=== PATIENT | female | born 1990 | race Caucasian/White ===

== ENCOUNTER 2021-07-17 08:05 | Emergency (ER) | payer OTHER ==
[~2021-07-17] VITALS: Ht 165.1 cm; Wt 82.6 kg
[2021-07-17 08:48] LABS: BASOPHIL 0.3 % (0-2); EOSINOPHIL 0.9 % (0-5); HCT 43.1 % (37.0-47.0); HGB 14.5 g/dl (12.5-16.0); LYMPHOCYTE 21.2 % (15-48); MCH 30.3 pg (25.0-31.0); MCHC 33.6 g/dL (32.0-36.0); MCV 90.2 fL (78.0-100.0); MONOCYTE 6.8 % (0-12); NEUTROPHIL 70.5 % (41-80); NRBC 0; PLT 299 K/uL (150-400); RBC 4.78 M/uL (4.20-5.40); WBC 13.5 K/uL (4.0-10.5)
[2021-07-17 08:48] LABS: BILIRUBIN NEGATIVE (NEGATIVE); BLOOD NEGATIVE Ery/uL (NEGATIVE); CLARITY CLEAR (CLEAR); COLOR YELLOW (YELLOW); GLUCOSE (U) NORMAL (NORMAL); LEUKOCYTES NEGATIVE Leu/uL (NEGATIVE); NITRITE NEGATIVE (NEGATIVE); PROTEIN NEGATIVE (NEGATIVE); SPECIFIC GRAVITY 1.025 (1.001-1.030); UROBILINOGEN 0.2 mg/dL (0.2-1.0)
[2021-07-17 09:04] LABS: BILIRUBIN - TOTAL 0.7 mg/dL (0.2-1.0); CREATININE 0.61 mg/dL (0.51-0.95); POTASSIUM 4.3 mmol/L (3.5-5.1)
[2021-07-17 09:32] LABS: HCG (URINE) SCREEN NEGATIVE (NEGATIVE)
[2021-07-17] MEDS ORDERED: NORCO 5-325 TA1 EACH PO (10:51)
[2021-07-17] MEDS ORDERED: ONDANSETRON ODT4 MG PO (10:51)
[2021-07-17] MEDS ORDERED: NAPROXEN500 MG PO (10:51)
== END 2021-07-17 11:00 | disposition home or self-care (01) ==
LOC: FER 08:05
PROVIDERS: Emergency Medicine
DX: N83.291 Other ovarian cyst, right side (principal)
CPT/HCPCS: 36415; 76856; 80053; 81003; 83690; 84703; 85025; J1170; J1885; J2405

== ENCOUNTER 2021-07-18 06:16 | Emergency (ER) | payer OTHER ==
[~2021-07-18 06:16] MED LIST: NAPROXEN500 MG PO; NORCO 5-325 TA1 EACH PO; ONDANSETRON ODT4 MG PO
[2021-07-18 08:15] LABS: BASOPHIL 0.5 % (0-2); EOSINOPHIL 1.7 % (0-5); HCT 38.2 % (37.0-47.0); LYMPHOCYTE 30.7 % (15-48); MCH 30.8 pg (25.0-31.0); MCV 90.5 fL (78.0-100.0); MONOCYTE 7.3 % (0-12); MPV 9.9 fL (6.0-9.5); NEUTROPHIL 59.7 % (41-80); NRBC 0; PLT 266 K/uL (150-400); RBC 4.22 M/uL (4.20-5.40); RDW 12.1 % (11.5-14.0); WBC 8.1 K/uL (4.0-10.5)
== END 2021-07-18 08:45 | disposition home or self-care (01) ==
LOC: FER 06:16
PROVIDERS: Emergency Medicine
DX: N83.291 Other ovarian cyst, right side (principal)
CPT/HCPCS: 36415; 85025; 99284; J1885